=== PATIENT | female | born 1950 | race Caucasian/White ===

== ENCOUNTER 2020-07-08 22:45 | Emergency (ER) | payer MEDICARE, BC ==
[~2020-07-08] VITALS: Ht 160 cm; Wt 59.0 kg
[2020-07-08 23:13] LABS: HEMOGLOBIN 14.2 g/dl (12.0-16.0); MEAN PLATELET VOLUME 8.7 FL (7.4-10.4); WHITE BLOOD COUNT 7.8 X10'3 (4.5-11.0)
[2020-07-08 23:15] LABS: BASOPHILS % (AUTO) 0.6 % (0-1); EOSINOPHILS # (AUTO) 0.2 X10'3 (0-0.9); EOSINOPHILS % (AUTO) 2.9 % (0-6); LYMPHOCYTES # (AUTO) 2.6 X10'3 (1.1-4.8); LYMPHOCYTES % (AUTO) 32.7 % (21-51); MEAN CORPUSCULAR HEMOGLOBIN 34.1 PG (27.0-31.0); MEAN CORPUSCULAR HGB CONC 33.9 g/dL (33.0-36.5); MEAN CORPUSCULAR VOLUME 100.6 FL (78-98); MONOCYTES # (AUTO) 0.7 X10'3 (0-0.9); MONOCYTES % (AUTO) 9.6 % (2-12); NEUTROPHILS # (AUTO) 4.2 X10'3 (1.8-7.7); NEUTROPHILS % (AUTO) 54.2 % (42-75); PLATELET COUNT 185 X10'3 (140-440); RED BLOOD COUNT 4.17 X10'6 (4.20-5.60); RED CELL DISTRIBUTION WIDTH 12.4 % (11.5-14.5)
--- NOTE | 2020-07-08 23:20 | NUR ---
pt to ct with tech via wheel chair
[2020-07-08 23:25] LABS: ALANINE AMINOTRANSFERASE 29 U/L (12-78); ALBUMIN 3.7 G/DL (3.4-5.0); ALBUMIN/GLOBULIN RATIO 1.1 (1.1-1.5); ALKALINE PHOSPHATASE 98 IU/L (46-116); ANION GAP 4 (8-16); ASPARTATE AMINO TRANSFERASE 20 U/L (10-37); BILIRUBIN,TOTAL 0.5 MG/DL (0.1-1.0); BLOOD UREA NITROGEN 12 MG/DL (7-18); CHLORIDE 106 MMOL/L (99-107); CREATININE 0.86 MG/DL (0.40-0.90); GLUCOSE 106 MG/DL (70-104); LIPASE 67 U/L (73-393); POTASSIUM 3.6 MMOL/L (3.5-5.1); SODIUM 138 MMOL/L (135-145); TOTAL CARBON DIOXIDE 28.3 MMOL/L (24-32); TOTAL PROTEIN 7.1 G/DL (6.4-8.2); eGFR 65 ML/MIN
[2020-07-08 23:26] LABS: CLARITY,URINE CLEAR (Clear); COLOR,URINE YELLOW (Yellow); GLUCOSE, URINE NEGATIVE (Neg); KETONES,URINE NEGATIVE (Neg); LEUKOCYTE ESTERASE ,URINE SMALL (Neg); NITRITES, URINE NEGATIVE (Neg); OCCULT BLOOD,URINE TRACE-INTACT (Neg); PH,URINE 7.5 (4.8-8.0); PROTEIN,URINE NEGATIVE (Neg)
--- NOTE | 2020-07-08 23:30 | NUR ---
pt back from ct
[2020-07-08 23:35] LABS: BACTERIA,URINE NONE SEEN /HPF (Neg); RBC,URINE 0-2 /HPF (0-2); SQUAMOUS EPITHELIAL CELL,UR FEW /LPF (FEW); UA COLLECTION TYPE CLN CATCH MIDSTREAM; WBC,URINE 0-4 /HPF (0-4)
[2020-07-09] MEDS ORDERED: sucralfate 1gm/10ml UD suspension PO SCH (00:10)
[2020-07-09] MEDS ORDERED: famotidine/PF 10 mg/ml inj IV ONE (00:10)
[2020-07-09] MEDS ORDERED: pantoprazole 40 MG vial IV ONE (00:10)
[2020-07-09] MEDS ORDERED: LIDOcaine Viscous 15ml cup MM PRN (00:10)
[2020-07-09] MEDS ORDERED: mag hydrox/Alum hydrox/simeth 30ml oral suspension PO ONE (00:10)
[2020-07-09 00:39] VITALS: BP 190/83
== END 2020-07-09 00:35 | disposition home or self-care (01) ==
LOC: ER 22:46
DX: R10.13 Epigastric pain (principal); Z98.51 Tubal ligation status; Z98.61 Coronary angioplasty status; Z98.890 Other specified postprocedural states
CPT/HCPCS: 74176; 80053; 81001; 83605; 83690; 84484; 85025; 87088; 93005; 99285

== ENCOUNTER 2020-11-23 19:28 | Inpatient (IN) | payer MEDICARE, BC ==
[~2020-11-23] VITALS: Ht 160 cm; Wt 85.0 kg
--- NOTE | 2020-11-23 19:35 | NUR ---
GASTRIC BYPASS 15 YEARS AGO
--- NOTE | 2020-11-23 19:36 | NUR ---
DRY HEAVES X 3 DAYS DRAMTIC HEADS=ACHE X 3 DAYS
[2020-11-23] MEDS ORDERED: normal saline 1000ML IV soln IV ONE (19:45)
[2020-11-23 20:01] LABS: BASOPHILS % (AUTO) 0.1 % (0-1); EOSINOPHILS # (AUTO) 0.4 X10'3 (0-0.9); EOSINOPHILS % (AUTO) 1.9 % (0-6); HEMATOCRIT 33.9 % (35.0-45.0); HEMOGLOBIN 11.3 g/dl (12.0-16.0); LYMPHOCYTES # (AUTO) 0.2 X10'3 (1.1-4.8); MEAN CORPUSCULAR HGB CONC 33.2 g/dL (33.0-36.5); MEAN CORPUSCULAR VOLUME 99.4 FL (78-98); MEAN PLATELET VOLUME 8.5 FL (7.4-10.4); MONOCYTES # (AUTO) 0.3 X10'3 (0-0.9); MONOCYTES % (AUTO) 1.5 % (2-12); NEUTROPHILS # (AUTO) 19.6 X10'3 (1.8-7.7); NEUTROPHILS % (AUTO) 95.5 % (42-75); PLATELET COUNT 205 X10'3 (140-440); RED BLOOD COUNT 3.41 X10'6 (4.20-5.60); WHITE BLOOD COUNT 20.5 X10'3 (4.5-11.0)
[2020-11-23 20:13] LABS: ALANINE AMINOTRANSFERASE 39 U/L (12-78); ALBUMIN 1.6 G/DL (3.4-5.0); ALBUMIN/GLOBULIN RATIO 0.4 (1.1-1.5); ALKALINE PHOSPHATASE 302 IU/L (46-116); ANION GAP 15 (8-16); ASPARTATE AMINO TRANSFERASE 118 U/L (10-37); BILIRUBIN,TOTAL 1.1 MG/DL (0.1-1.0); BLOOD UREA NITROGEN 42 MG/DL (7-18); BUN/CREATININE RATIO 12.1 (6.6-38.0); CALCIUM 7.7 MG/DL (8.5-10.1); CHLORIDE 106 MMOL/L (99-107); CREATININE 3.46 MG/DL (0.40-0.90); GLUCOSE 70 MG/DL (70-104); LIPASE < 50 U/L (73-393); MAGNESIUM 1.7 MG/DL (1.5-2.4); SODIUM 140 MMOL/L (135-145); TOTAL CARBON DIOXIDE 19.3 MMOL/L (24-32); TOTAL PROTEIN 5.2 G/DL (6.4-8.2); eGFR 13 ML/MIN
[2020-11-23] MEDS ORDERED: dextrose 50%-water 50ml dispensing syringe IV ONE (20:15)
[2020-11-23 20:16] LABS: POTASSIUM 2.5 MMOL/L (3.5-5.1)
[2020-11-23] MEDS ORDERED: NORepinephrine inj. 32 MG in normal saline 250ml IV soln 218 ML IV SCH (20:20)
[2020-11-23] MEDS ORDERED: LIDOcaine 2% 10ml TOPICAL JELLY (Urojet) TP ONE ×2 (20:20→22:35)
[2020-11-23] MEDS ORDERED: piperacillin/tazo 3.375gm/50ml 50 ML IV ONE (20:55)
[2020-11-23] MEDS: NORepinephrine 8mg/ 250ml NS 250 ML IV SCH (21:00)
[2020-11-23] MEDS: potassium Cl 10 mEq/100mL bag IV SCH ×2 (21:20→22:17)
[2020-11-23 22:06] LABS: OCCULT BLOOD STOOL NEGATIVE (Neg)
[2020-11-23 22:16] LABS: ANISOCYTOSIS 1+; PLATELET ESTIMATE NORMAL; TOTAL CELLS COUNTED 100
[2020-11-23] MEDS ORDERED: fentaNYL/PF 50MCG/1 ML 2ML syringe IV ONE (22:30)
[2020-11-23] MEDS ORDERED: ondansetron/PF 4mg/2ml inj IV ONE (22:30)
[2020-11-23] MEDS ORDERED: acetaminophen 325mg tablet PO PRN ×2 (22:35)
[2020-11-23] MEDS ORDERED: ondansetron/PF 4mg/2ml inj IV PRN (22:35)
[2020-11-23] MEDS ORDERED: magnesium hydroxide 30ml (MOM) UD suspension PO PRN (22:35)
[2020-11-23] MEDS ORDERED: potassium Cl 20 mEq SR tablet PO PRN ×2 (22:35)
[2020-11-23] MEDS ORDERED: normal saline 1000ml 1,000 ML IV SCH (22:35)
--- NOTE | 2020-11-23 23:12 | NUR ---
tele indirect sales representative paged
--- NOTE | 2020-11-23 23:13 | NUR ---
tele monitor Dr Moyer unable to get into room he states he just an account today and does not know how to use this system
--- NOTE | 2020-11-23 23:18 | NUR ---
dr russell would like a surgical consult, requested we move patient to icu now to use the zoom system [place] [address] [place] and needs consult services available.
[2020-11-24] VITALS (22 sets, daily range): BP systolic 87–110; BP diastolic 36–85
--- NOTE | 2020-11-24 | NUR ---
Patient in room CICU 2011. I have received report from Yessica RN (ER) and had the opportunity to ask questions and assume patient care. Patient arrived by barbara with Nor Epi infusing to support BP. She is tachycardic (104) and doing well on room air. She is having generalized pain. Will continue to monitor.
[2020-11-24] MEDS: potassium Cl 40MEQ/250ML bag 270 ML IV PRN ×2 (00:46→03:07)
[2020-11-24 01:18] LABS: BASOPHILS % (AUTO) 0.1 % (0-1); EOSINOPHILS # (AUTO) 0.8 X10'3 (0-0.9); EOSINOPHILS % (AUTO) 3.1 % (0-6); HEMATOCRIT 36.7 % (35.0-45.0); LYMPHOCYTES # (AUTO) 0.1 X10'3 (1.1-4.8); LYMPHOCYTES % (AUTO) 0.4 % (21-51); MEAN CORPUSCULAR HEMOGLOBIN 32.6 PG (27.0-31.0); MEAN CORPUSCULAR HGB CONC 32.8 g/dL (33.0-36.5); MEAN CORPUSCULAR VOLUME 99.6 FL (78-98); MEAN PLATELET VOLUME 8.7 FL (7.4-10.4); MONOCYTES # (AUTO) 0.1 X10'3 (0-0.9); MONOCYTES % (AUTO) 0.6 % (2-12); NEUTROPHILS # (AUTO) 24.9 X10'3 (1.8-7.7); NEUTROPHILS % (AUTO) 95.8 % (42-75); PLATELET COUNT 221 X10'3 (140-440); RED BLOOD COUNT 3.68 X10'6 (4.20-5.60); RED CELL DISTRIBUTION WIDTH 13.2 % (11.5-14.5)
[2020-11-24] MEDS: NORepinephrine 8mg/ 250ml NS 250 ML IV SCH ×3 (01:40→08:10)
[2020-11-24 01:47] LABS: ALANINE AMINOTRANSFERASE 74 U/L (12-78); ALBUMIN 1.6 G/DL (3.4-5.0); ALBUMIN/GLOBULIN RATIO 0.4 (1.1-1.5); ALKALINE PHOSPHATASE 355 IU/L (46-116); ANION GAP 21 (8-16); ASPARTATE AMINO TRANSFERASE 251 U/L (10-37); BILIRUBIN,TOTAL 1.6 MG/DL (0.1-1.0); BLOOD UREA NITROGEN 39 MG/DL (7-18); BUN/CREATININE RATIO 11.7 (6.6-38.0); CALCIUM 7.1 MG/DL (8.5-10.1); CHLORIDE 108 MMOL/L (99-107); CREATININE 3.33 MG/DL (0.40-0.90); GLUCOSE 80 MG/DL (70-104); SODIUM 142 MMOL/L (135-145); TOTAL PROTEIN 5.3 G/DL (6.4-8.2); eGFR 14 ML/MIN
[2020-11-24 01:50] LABS: POTASSIUM 2.6 MMOL/L (3.5-5.1)
[2020-11-24 01:51] LABS: TOTAL CARBON DIOXIDE 13.4 MMOL/L (24-32)
[2020-11-24] MEDS: morphine 2 MG/ML inj. syringe IV PRN ×3 (02:58→12:36)
[2020-11-24 03:19] LABS: TOTAL CELLS COUNTED 100
[2020-11-24 03:20] LABS: ANISOCYTOSIS 1+; PLATELET ESTIMATE NORMAL; TOXIC GRANULATION 1+
[2020-11-24] MEDS ORDERED: magnesium 2GM in 50ml NS 50 ML IV ONE (04:05)
[2020-11-24] MEDS ORDERED: sodium bicarbonate (8.4%) 1 mEq/ml syringe IV ONE (04:05)
[2020-11-24] MEDS ORDERED: sodium bicarbonate (8.4%) inj. 150 MEQ in dextrose 5%-water 1,000 ML IV SCH (04:05)
[2020-11-24] MEDS ORDERED: vancomycin/NS 1 GM ADD-VANTAGE 250 ML IV ONE (04:10)
[2020-11-24 04:32] LABS: ABG BASE EXCESS -10.2 mmol/L (-2.0-2.0); ABG HCO3 12.8 mmol/L (22.0-26.0); ABG OXYGEN SATURATION 94.8 % (94-97); ABG PCO2 (T) 21.3 mmHg (32.0-45.0); ABG PO2 (T) 70.4 mmHg (75.0-100.0); ALLEN'S TEST POSITIVE; FCOHb 0.5 % (0.0-3.9); FMetHb 0.1 % (0.0-1.5); FO2Hb 94.2 % (94-97); PATIENT TEMPERATURE 36.1; TOTAL HEMOGLOBIN 13.1 G/dl (12.0-16.0)
[2020-11-24] MEDS: vasopressin inj. 40 UNIT in normal saline 50ml IV soln 38 ML IV SCH ×2 (04:42→16:05)
--- NOTE | 2020-11-24 04:58 | NUR ---
Patient is hallucinating a bit. She thinks the TV is on but it is off. She is also seeing a baby tiger in the vent. She realizes it isn't real. She's also in a lot of pain, mostly in her knees. 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
[2020-11-24 05:03] LABS: ALBUMIN 1.5 G/DL (3.4-5.0); ANION GAP 16 (8-16); BLOOD UREA NITROGEN 41 MG/DL (7-18); CALCIUM 6.9 MG/DL (8.5-10.1); CHLORIDE 112 MMOL/L (99-107); CREATININE 3.42 MG/DL (0.40-0.90); GLUCOSE 52 MG/DL (70-104); POTASSIUM 4.2 MMOL/L (3.5-5.1); SODIUM 144 MMOL/L (135-145); TOTAL CARBON DIOXIDE 15.8 MMOL/L (24-32); eGFR 13 ML/MIN
--- NOTE | 2020-11-24 06:15 | NUR ---
Patient is diaphoretic and confused, BS 50, 1 amp of 50% dextrose given. Called Dr Lomeli, verbal orders to put in hypoglycemic protocol.
--- NOTE | 2020-11-24 06:20 | NUR ---
Problems reprioritized. Patient report given, questions answered & plan of care reviewed with Carmine NORRIS.
--- NOTE | 2020-11-24 06:21 | NUR ---
Problems reprioritized. Patient report given, questions answered & plan of care reviewed with Carmine NORRIS.
[2020-11-24] MEDS ORDERED: dextrose 50%-water 50ml dispensing syringe IV ONE (06:26)
[2020-11-24] MEDS: dextrose 50%-water 50ml dispensing syringe IV PRN ×4 (06:35→19:35)
[2020-11-24] MEDS ORDERED: dextrose ORAL solution 15 GM/59 ML bottle PO PRN ×2 (06:40)
[2020-11-24] MEDS ORDERED: MESSAGE TO PHARMACY PO ONE (06:40)
[2020-11-24] MEDS ORDERED: glucagon, human recombinant 1mg kit SUBCUT PRN (06:40)
[2020-11-24] MEDS ORDERED: vancomycin/NS 1 GM ADD-VANTAGE 250 ML IV PRN (07:00)
--- NOTE | 2020-11-24 07:05 | NUR ---
Positive blood cultures: Gram + Cocci in pairs and short chains from CVL. aware. Continue current Abx regimen.
[2020-11-24] MEDS: piperacillin/tazo 3.375gm/50ml 50 ML IV SCH ×2 (07:26→19:35)
[2020-11-24] MEDS: heparin, porcine 5000 units/ml vial SQ SCH ×2 (07:27→19:16)
[2020-11-24] MEDS: K, MAG and/or Phos replacement - Verify level? MC SCH (09:00)
[2020-11-24] MEDS ORDERED: NORepinephrine 32 MG in Normal Saline 250ml IV soln IV SCH (09:30)
[2020-11-24 09:53] LABS: CLARITY,URINE CLEAR (Clear); COLOR,URINE YELLOW (Yellow); GLUCOSE, URINE 100 mg/dl (Neg); KETONES,URINE NEGATIVE (Neg); LEUKOCYTE ESTERASE ,URINE SMALL (Neg); NITRITES, URINE NEGATIVE (Neg); OCCULT BLOOD,URINE MODERATE (Neg); PH,URINE 7.5 (4.8-8.0); PROTEIN,URINE >=300 mg/dl (Neg); UROBILINOGEN,URINE 0.2 E.U/dL (0.2-1.0)
[2020-11-24 10:07] LABS: UA COLLECTION TYPE FOLEY CATH
[2020-11-24 10:08] LABS: BACTERIA,URINE FEW /HPF (Neg); MUCUS STRANDS FEW /LPF (Neg); SQUAMOUS EPITHELIAL CELL,UR FEW /LPF (FEW); TRANSITIONAL EPI CELLS,URINE FEW /HPF; WBC,URINE 20-30 /HPF (0-4)
[2020-11-24] MEDS ORDERED: normal saline 500ml IV soln 500 ML IV ONE ×2 (10:10→12:15)
--- NOTE | 2020-11-24 10:30 | NUR ---
Hold mixed venous lab draw at this time per Dr. Goins and focus on ABG at this time.
[2020-11-24 10:45] LABS: MEAN CORPUSCULAR HEMOGLOBIN 32.7 PG (27.0-31.0); MEAN CORPUSCULAR HGB CONC 32.7 g/dL (33.0-36.5)
[2020-11-24 10:46] LABS: HEMATOCRIT 36.8 % (35.0-45.0); MEAN CORPUSCULAR VOLUME 100.2 FL (78-98); MEAN PLATELET VOLUME 8.2 FL (7.4-10.4); PLATELET COUNT 182 X10'3 (140-440); RED BLOOD COUNT 3.68 X10'6 (4.20-5.60); RED CELL DISTRIBUTION WIDTH 13.5 % (11.5-14.5)
[2020-11-24 10:49] LABS: WHITE BLOOD COUNT 28.4 X10'3 (4.5-11.0)
[2020-11-24 11:01] LABS: ALANINE AMINOTRANSFERASE 81 U/L (12-78); ALBUMIN 1.3 G/DL (3.4-5.0); ALBUMIN/GLOBULIN RATIO 0.4 (1.1-1.5); ALKALINE PHOSPHATASE 378 IU/L (46-116); ANION GAP 16 (8-16); ASPARTATE AMINO TRANSFERASE 196 U/L (10-37); BILIRUBIN,TOTAL 2.2 MG/DL (0.1-1.0); BLOOD UREA NITROGEN 42 MG/DL (7-18); BUN/CREATININE RATIO 11.6 (6.6-38.0); CALCIUM 6.4 MG/DL (8.5-10.1); CHLORIDE 111 MMOL/L (99-107); CREATININE 3.61 MG/DL (0.40-0.90); GLUCOSE 96 MG/DL (70-104); MAGNESIUM 1.4 MG/DL (1.5-2.4); PHOSPHORUS 2.4 MG/DL (2.3-4.5); POTASSIUM 3.5 MMOL/L (3.5-5.1); SODIUM 142 MMOL/L (135-145); TOTAL CARBON DIOXIDE 15.3 MMOL/L (24-32); TOTAL PROTEIN 4.7 G/DL (6.4-8.2); eGFR 12 ML/MIN
[2020-11-24 11:03] LABS: ABG HCO3 11.9 mmol/L (22.0-26.0); ABG OXYGEN SATURATION 86.2 % (94-97); ABG PCO2 (T) 25.5 mmHg (32.0-45.0); ABG PO2 (T) 54.5 mmHg (75.0-100.0); FCOHb 0.5 % (0.0-3.9); FMetHb 0.2 % (0.0-1.5); FO2Hb 85.6 % (94-97)
[2020-11-24 11:08] LABS: TOTAL CELLS COUNTED 100
[2020-11-24 11:09] LABS: PLATELET ESTIMATE NORMAL; TOXIC GRANULATION 2+
[2020-11-24 11:36] LABS: TROPONIN I 0.33 NG/ML (0.0-0.05)
[2020-11-24] MEDS ORDERED: magnesium 4gm in 100ml NS 100 ML IV PRN (11:50)
[2020-11-24] MEDS ORDERED: magnesium 2GM in 50ml NS 50 ML IV PRN (11:50)
[2020-11-24 12:24] LABS: C DIFF ANTIGEN NEGATIVE (NEGATIVE); C DIFF SPECIMEN=DIARRHEA? ACCEPTABLE; C DIFFICILE TOXINS A&B NEGATIVE (Neg)
[2020-11-24] MEDS: famotidine/PF 10 mg/ml inj IV SCH (12:25)
[2020-11-24] MEDS: NORepinephrine inj. 32 MG in normal saline 250ml IV soln 218 ML IV SCH (12:47)
[2020-11-24] MEDS ORDERED: HYDROmorphone/PF 0.2 MG/ML SYRINGE IM STA (12:51)
[2020-11-24] MEDS ORDERED: HYDROmorphone/PF 0.2 MG/ML SYRINGE IV PRN (12:55)
[2020-11-24] MEDS ORDERED: sodium bicarbonate (8.4%) 1 mEq/ml syringe IV STA (12:58)
[2020-11-24] MEDS: CLINDAMYCIN/D5W 900mg/50ml 50 ML IV SCH (14:57)
[2020-11-24 15:25] LABS: ABG BASE EXCESS -12.1 mmol/L (-2.0-2.0); ABG HCO3 12.6 mmol/L (22.0-26.0); ABG OXYGEN SATURATION 98.2 % (94-97); ABG PO2 (T) 143.7 mmHg (75.0-100.0); FCOHb 0.1 % (0.0-3.9); FLOW 15 L/min; FMetHb 0.2 % (0.0-1.5); FO2Hb 97.9 % (94-97); PATIENT TEMPERATURE 38.5; TOTAL HEMOGLOBIN 12.6 G/dl (12.0-16.0)
[2020-11-24 16:06] LABS: HEMOGLOBIN 11.4 g/dl (12.0-16.0)
[2020-11-24 16:07] LABS: CLARITY,URINE CLOUDY (Clear); COLOR,URINE YELLOW (Yellow); GLUCOSE, URINE NEGATIVE (Neg); KETONES,URINE NEGATIVE (Neg); LEUKOCYTE ESTERASE ,URINE SMALL (Neg); NITRITES, URINE NEGATIVE (Neg); OCCULT BLOOD,URINE LARGE (Neg); PH,URINE 7.5 (4.8-8.0); PROTEIN,URINE >=300 mg/dl (Neg); UROBILINOGEN,URINE 0.2 E.U/dL (0.2-1.0)
[2020-11-24 16:08] LABS: HEMATOCRIT 34.5 % (35.0-45.0); MEAN CORPUSCULAR HEMOGLOBIN 32.8 PG (27.0-31.0); MEAN CORPUSCULAR HGB CONC 32.9 g/dL (33.0-36.5); MEAN CORPUSCULAR VOLUME 99.6 FL (78-98); MEAN PLATELET VOLUME 8.7 FL (7.4-10.4); PLATELET COUNT 153 X10'3 (140-440); RED BLOOD COUNT 3.46 X10'6 (4.20-5.60); RED CELL DISTRIBUTION WIDTH 13.6 % (11.5-14.5)
[2020-11-24 16:12] LABS: WHITE BLOOD COUNT 30.8 X10'3 (4.5-11.0)
[2020-11-24 16:18] LABS: PARTIAL THROMBOPLASTIN TIME 51 SECONDS (22-32)
[2020-11-24 16:18] LABS: UA COLLECTION TYPE FOLEY CATH
[2020-11-24 16:19] LABS: ALANINE AMINOTRANSFERASE 76 U/L (12-78); ALBUMIN 1.1 G/DL (3.4-5.0); ALBUMIN/GLOBULIN RATIO 0.3 (1.1-1.5); ALKALINE PHOSPHATASE 347 IU/L (46-116); ANION GAP 18 (8-16); ASPARTATE AMINO TRANSFERASE 172 U/L (10-37); BILIRUBIN,TOTAL 2.3 MG/DL (0.1-1.0); BLOOD UREA NITROGEN 43 MG/DL (7-18); BUN/CREATININE RATIO 11.9 (6.6-38.0); CHLORIDE 114 MMOL/L (99-107); CREATININE 3.62 MG/DL (0.40-0.90); GLUCOSE 138 MG/DL (70-104); SODIUM 145 MMOL/L (135-145); TOTAL PROTEIN 4.3 G/DL (6.4-8.2); eGFR 12 ML/MIN
[2020-11-24 16:20] LABS: POTASSIUM 3.9 MMOL/L (3.5-5.1)
[2020-11-24 16:20] LABS: RBC,URINE 20-50 /HPF (0-2); WBC,URINE 50-100 /HPF (0-4)
[2020-11-24] MEDS: epiNEPHrine 5 MG in NS 250ml IV.SOLN IV SCH (16:20)
[2020-11-24 16:21] LABS: BACTERIA,URINE FEW /HPF (Neg); MUCUS STRANDS FEW /LPF (Neg); RENAL CELLS, URINE FEW /HPF; SQUAMOUS EPITHELIAL CELL,UR FEW /LPF (FEW); TRANSITIONAL EPI CELLS,URINE FEW /HPF
[2020-11-24 16:22] LABS: TOTAL CARBON DIOXIDE 13.5 MMOL/L (24-32)
--- NOTE | 2020-11-24 16:25 | NUR ---
Critical Ca 6.0, LA 5.4, CO2 13.5, WBC 30.2, Blood sugar 37. Dr. Goins at bedside and aware of critical values. Calcium Gluconate ordered. Also, q3h blood sugar accuchecks and treat as needed with D50%. Ultrasound at bedside to monitor right groin. MD aware of temp of 38.6. Tylenol provided. working with Surgical vs IR consult.
[2020-11-24 16:30] LABS: TOTAL PROTEIN,URINE RANDOM 1467.6 MG/DL
[2020-11-24] MEDS ORDERED: CALCIUM GLUC 1gm/50ml NACL,iso 50 ML IV STA (16:30)
[2020-11-24 16:38] LABS: PLATELET ESTIMATE NORMAL; TOTAL CELLS COUNTED 100; TOXIC GRANULATION 2+
[2020-11-24] MEDS ORDERED: IOHEXOL 12MG/ML oral solution 500 ML BOTTLE PO STA (17:08)
[2020-11-24 17:30] LABS: UA EOSINOPHILS NO EOS /HPF
[2020-11-24] MEDS ORDERED: albumin (Human) 5% 250ml 250 ML IV ONE ×2 (17:40)
--- NOTE | 2020-11-24 18:32 | NUR ---
Patient in room CICU 2011. I have received report from JR Lou and had the opportunity to ask questions and assume patient care.
[2020-11-24] MEDS ORDERED: HYDROmorphone inj. 0.5 MG/0.5 ML DISP.SYRIN IV PRN (18:45)
--- NOTE | 2020-11-24 18:54 | NUR ---
Shift summary: Patient becoming more tachypneic and o2 requirements increasing to 6L nasal cannula this AM. Also, patient requiring more pressor support. Per Dr. Goins, increase Vasopressin to max dose and titrate levophed down. Hold Epinephrine drip as per MD as HR elevated at this time. During physical exam with Dr. Goins, small perineum wound/abrasion noted; thus, with increased abd/leg pain, MRI ordered to rule out possible source of infection. Patient tolerated transfer to MRI; however, upon return, patient requiring more o2 and pressor support. ART line placed by Dr. Goins and surgical vs IR consult initiated. Dr. Alfaro at bedside to consult patient and requesting repeat CT scan with oral contrast. Report given to Angelica NORRIS with all questions answered.
[2020-11-24 19:40] LABS: ABG BASE EXCESS -14.5 mmol/L (-2.0-2.0); ABG HCO3 11.5 mmol/L (22.0-26.0); ABG OXYGEN SATURATION 93.9 % (94-97); ABG PO2 (T) 79.3 mmHg (75.0-100.0); ALLEN'S TEST POSITIVE; FCOHb 0.3 % (0.0-3.9); FLOW 5 L/min; FMetHb 0.2 % (0.0-1.5); FO2Hb 93.4 % (94-97); PATIENT TEMPERATURE 38.6; TOTAL HEMOGLOBIN 11.6 G/dl (12.0-16.0)
[2020-11-24 19:50] LABS: HEMATOCRIT 34.2 % (35.0-45.0); HEMOGLOBIN 11.1 g/dl (12.0-16.0); MEAN CORPUSCULAR HEMOGLOBIN 32.3 PG (27.0-31.0); MEAN CORPUSCULAR HGB CONC 32.5 g/dL (33.0-36.5); MEAN CORPUSCULAR VOLUME 99.5 FL (78-98); MEAN PLATELET VOLUME 8.4 FL (7.4-10.4); PLATELET COUNT 129 X10'3 (140-440); RED BLOOD COUNT 3.44 X10'6 (4.20-5.60); RED CELL DISTRIBUTION WIDTH 13.5 % (11.5-14.5)
[2020-11-24 19:57] LABS: WHITE BLOOD COUNT 34.8 X10'3 (4.5-11.0)
--- NOTE | 2020-11-24 20:00 | NUR ---
Dr. Louis updated on patient condition. Patient unstable to go to CT at the moment, thus, tele med MD called. orders for bp received as patient's BP on low side and levo and vaso maxed per MD Goins orders. MD notified of patient current ABG, avoiding intubation at this time, starting a bicarb drip. WBC is 34.8, she was notified of this. pt BG has been hypoglycemic receiving multiple pushes of d50. MD ordered bicarb drip to be in d5w to combat the hypoglycemia. Will be taking patient to CT, with another DRILLER'S OFFSIDER, RT and tech. Possible surgery by MD Alfaro after CT
[2020-11-24 20:03] LABS: ALANINE AMINOTRANSFERASE 73 U/L (12-78); ALBUMIN 1.8 G/DL (3.4-5.0); ALBUMIN/GLOBULIN RATIO 0.6 (1.1-1.5); ALKALINE PHOSPHATASE 348 IU/L (46-116); ANION GAP 17 (8-16); ASPARTATE AMINO TRANSFERASE 150 U/L (10-37); BILIRUBIN,TOTAL 2.8 MG/DL (0.1-1.0); BLOOD UREA NITROGEN 45 MG/DL (7-18); CALCIUM 6.5 MG/DL (8.5-10.1); CHLORIDE 112 MMOL/L (99-107); CREATININE 3.75 MG/DL (0.40-0.90); GLUCOSE 76 MG/DL (70-104); SODIUM 144 MMOL/L (135-145); TOTAL CARBON DIOXIDE 15.2 MMOL/L (24-32); TOTAL PROTEIN 4.8 G/DL (6.4-8.2); eGFR 12 ML/MIN
[2020-11-24] MEDS ORDERED: phenylephrine inj 50 MG in normal saline 250ml IV soln 245 ML IV PRN (20:05)
--- NOTE | 2020-11-24 20:20 | NUR ---
spoke to Dr. Sotelo Anesthesiologist regarding unable to give pt the remainder of the oral contrast for her CT scan due to pts overall decline in condition. Unable to place OG tube due to pt having gastric bypass. No new orders at this time
[2020-11-24] MEDS: sodium bicarbonate (8.4%) inj. 150 MEQ in dextrose 5%-water 1,000 ML IV SCH (20:32)
[2020-11-24 20:39] LABS: ANISOCYTOSIS 1+; PLATELET ESTIMATE NORMAL; TOTAL CELLS COUNTED 100; TOXIC GRANULATION 2+
--- NOTE | 2020-11-24 21:00 | NUR ---
MD Alfaro and MD Mack at bedside, will be taking patient to OR.
[2020-11-24] MEDS ORDERED: gentamicin in saline, iso-osm 80 MG/50 ML premix IV ONE (21:05)
[2020-11-24] MEDS ORDERED: vasoPRESSIN 20 units/ml inj. ONE (21:06)
[2020-11-24] MEDS ORDERED: sevoflurane 250ml liquid IH ONE (21:06)
[2020-11-24] MEDS ORDERED: NORepinephrine 8 MG in NS 250 ML BAG (32 mcg/ml) IV ONE (21:06)
[2020-11-24] MEDS ORDERED: sodium bicarbonate (8.4%) inj. 1 MEQ/ML ML ONE (21:06)
[2020-11-24] MEDS ORDERED: albumin (Human) 5% 250ml 500 ML IV ONE (21:08)
[2020-11-24] MEDS ORDERED: GENTAMICIN IV ONE (22:00)
[2020-11-24] MEDS ORDERED: NORMAL SALINE IV ONE (22:00)
[2020-11-24] MEDS ORDERED: midazolam 2 mg/2 ml injection ONE (22:03)
[2020-11-24] MEDS ORDERED: fentaNYL/PF 50MCG/1 ML 2ML syringe ONE (22:04)
[2020-11-24 22:23] LABS: ABG BASE EXCESS -14.1 mmol/L (-2.0-2.0); ABG HCO3 14.5 mmol/L (22.0-26.0); ABG OXYGEN SATURATION 97.3 % (94-97); ABG PCO2 (T) 46.1 mmHg (32.0-45.0); ABG PO2 (T) 126.7 mmHg (75.0-100.0); FCOHb 0.3 % (0.0-3.9); FMetHb 0.4 % (0.0-1.5); FO2Hb 96.6 % (94-97); PATIENT TEMPERATURE 37.9; TOTAL HEMOGLOBIN 11.6 G/dl (12.0-16.0)
[2020-11-24] MEDS ORDERED: LIDOcaine 1%/PF 5ML 10 MG/ML VIAL ONE (22:45)
[2020-11-24] MEDS ORDERED: rocuronium 10mg/ml inj IV ONE ×2 (22:45)
[2020-11-24] MEDS ORDERED: LIDOcaine 2% (20mg/ml) 5ml vial ONE (22:46)
[2020-11-24] MEDS ORDERED: propofol inj 20 ML IV ONE (22:46)
[2020-11-24 23:18] LABS: ABG BASE EXCESS -8.7 mmol/L (-2.0-2.0); ABG HCO3 15.6 mmol/L (22.0-26.0); ABG OXYGEN SATURATION 97.1 % (94-97); ABG PCO2 (T) 29.9 mmHg (32.0-45.0); ABG PO2 (T) 97.5 mmHg (75.0-100.0); FCOHb 0.2 % (0.0-3.9); FMetHb 0.2 % (0.0-1.5); FO2Hb 96.7 % (94-97); PATIENT TEMPERATURE 37.9; TOTAL HEMOGLOBIN 11.4 G/dl (12.0-16.0)
[2020-11-24] MEDS ORDERED: midazolam 2 mg/2 ml injection IV ONE (23:20)
[2020-11-24] MEDS ORDERED: fentaNYL/PF 50MCG/1 ML 2ML syringe IV PRN (23:20)
[2020-11-25] VITALS (28 sets, daily range): BP systolic 80–139; BP diastolic 33–54
[2020-11-25] MEDS: CLINDAMYCIN/D5W 900mg/50ml 50 ML IV SCH ×3 (00:32→16:00)
[2020-11-25 00:39] LABS: ABG BASE EXCESS -10.7 mmol/L (-2.0-2.0); ABG HCO3 14.2 mmol/L (22.0-26.0); ABG OXYGEN SATURATION 98.8 % (94-97); ABG PCO2 (T) 30.3 mmHg (32.0-45.0); ABG PO2 (T) 240.6 mmHg (75.0-100.0); FCOHb 0.3 % (0.0-3.9); FMetHb 0.3 % (0.0-1.5); FO2Hb 98.2 % (94-97); PATIENT TEMPERATURE 38.4; PEEP 5 cm H2O; RESPIRATORY RATE 16 b/min; TIDAL VOLUME 600 mL; TOTAL HEMOGLOBIN 11.4 G/dl (12.0-16.0)
[2020-11-25] MEDS: midazolam 100mg in NS 100ml 100 ML IV PRN ×2 (01:03→19:07)
[2020-11-25] MEDS: FENTANYL-0.9 % NACL/PF 100 ML IV PRN ×3 (01:04→19:06)
[2020-11-25 01:12] LABS: HEMOGLOBIN 10.4 g/dl (12.0-16.0); MEAN PLATELET VOLUME 8.5 FL (7.4-10.4)
[2020-11-25 01:14] LABS: HEMATOCRIT 31.6 % (35.0-45.0); MEAN CORPUSCULAR HEMOGLOBIN 32.7 PG (27.0-31.0); PLATELET COUNT 88 X10'3 (140-440); RED BLOOD COUNT 3.19 X10'6 (4.20-5.60); RED CELL DISTRIBUTION WIDTH 13.5 % (11.5-14.5)
[2020-11-25 01:23] LABS: WHITE BLOOD COUNT 35.8 X10'3 (4.5-11.0)
[2020-11-25 01:29] LABS: PARTIAL THROMBOPLASTIN TIME 66 SECONDS (22-32)
[2020-11-25 01:31] LABS: ALANINE AMINOTRANSFERASE 63 U/L (12-78); ALBUMIN 1.8 G/DL (3.4-5.0); ALBUMIN/GLOBULIN RATIO 0.7 (1.1-1.5); ALKALINE PHOSPHATASE 292 IU/L (46-116); ANION GAP 16 (8-16); ASPARTATE AMINO TRANSFERASE 108 U/L (10-37); BILIRUBIN,TOTAL 3.1 MG/DL (0.1-1.0); BLOOD UREA NITROGEN 48 MG/DL (7-18); BUN/CREATININE RATIO 12.6 (6.6-38.0); CALCIUM 6.5 MG/DL (8.5-10.1); CHLORIDE 110 MMOL/L (99-107); CREATININE 3.82 MG/DL (0.40-0.90); GLUCOSE 84 MG/DL (70-104); MAGNESIUM 1.4 MG/DL (1.5-2.4); PHOSPHORUS 4.4 MG/DL (2.3-4.5); POTASSIUM 3.9 MMOL/L (3.5-5.1); SODIUM 144 MMOL/L (135-145); TOTAL CARBON DIOXIDE 18.2 MMOL/L (24-32); TOTAL PROTEIN 4.5 G/DL (6.4-8.2); eGFR 12 ML/MIN
[2020-11-25] MEDS ORDERED: acetaminophen 1,000mg/100ml IV 100 ML IV ONE (02:05)
[2020-11-25] MEDS: epiNEPHrine 5 MG in NS 250ml IV.SOLN IV SCH (02:09)
[2020-11-25 02:47] LABS: ANISOCYTOSIS 1+; PLATELET ESTIMATE NORMAL; TOTAL CELLS COUNTED 100; TOXIC GRANULATION 2+
[2020-11-25] MEDS ORDERED: VANCOMYCIN LEVEL IV SCH (03:00)
[2020-11-25 04:33] LABS: ABG BASE EXCESS -11.1 mmol/L (-2.0-2.0); ABG HCO3 12.6 mmol/L (22.0-26.0); ABG OXYGEN SATURATION 98.5 % (94-97); ABG PCO2 (T) 24.6 mmHg (32.0-45.0); ABG PO2 (T) 150.3 mmHg (75.0-100.0); FCOHb 0.1 % (0.0-3.9); FMetHb 0.3 % (0.0-1.5); FO2Hb 98.1 % (94-97); PATIENT TEMPERATURE 38.9; PEEP 5 cm H2O; RESPIRATORY RATE 16 b/min; TIDAL VOLUME 600 mL
[2020-11-25] MEDS ORDERED: iohexol 350MG/ML 100ml bottle IV ONE (05:04)
--- NOTE | 2020-11-25 06:00 | NUR ---
At approximately 0430 Patient's hand to be severely dusky on the right side and slightly dusky on left. pulses checked, not palpable. attempted doppler and was unable to find the right radial pulse. unable to find right pedal and tibial via doppler but popliteal was found. left radial, pedal and tibial are found via doppler. patient also had a strange gaze and found that right pupil was slightly larger than the left. MD Alfaro and Tele med notified. CT of head was ordered as well as a CTA of aorta, MD aware of severely poor kidney function. patient was taken to CT and tolerated transport fairly well.
[2020-11-25] MEDS ORDERED: vancomycin/NS 1 GM ADD-VANTAGE 250 ML IV ONE (06:50)
--- NOTE | 2020-11-25 07:00 | NUR ---
Problems reprioritized. Patient report given, questions answered & plan of care reviewed with JR Steen.
[2020-11-25] MEDS: sodium bicarbonate (8.4%) inj. 150 MEQ in dextrose 5%-water 1,000 ML IV SCH ×2 (07:12→19:05)
[2020-11-25] MEDS: vasopressin inj. 40 UNIT in normal saline 50ml IV soln 38 ML IV SCH (07:45)
[2020-11-25] MEDS: famotidine/PF 10 mg/ml inj IV SCH (07:45)
[2020-11-25] MEDS: K, MAG and/or Phos replacement - Verify level? MC SCH (08:00)
[2020-11-25] MEDS: heparin, porcine 5000 units/ml vial SQ SCH (08:18)
[2020-11-25] MEDS ORDERED: PIGGYBACK IV ONE (08:30)
[2020-11-25] MEDS ORDERED: IMMUNE GLOBULIN IV ONE (08:30)
[2020-11-25] MEDS: hydrocortisone sod succ/PF 100mg/2ml inj. IV SCH ×2 (08:50→19:06)
[2020-11-25 08:51] LABS: HEMOGLOBIN 9.9 g/dl (12.0-16.0); LYMPHOCYTES # (AUTO) 0.5 X10'3 (1.1-4.8); LYMPHOCYTES % (AUTO) 1.4 % (21-51); MONOCYTES # (AUTO) 0.2 X10'3 (0-0.9); PLATELET COUNT 59 X10'3 (140-440)
[2020-11-25] MEDS: piperacillin/tazo 3.375gm/50ml 50 ML IV SCH (08:51)
[2020-11-25 08:53] LABS: BASOPHILS % (AUTO) 0.1 % (0-1); EOSINOPHILS # (AUTO) 0.7 X10'3 (0-0.9); EOSINOPHILS % (AUTO) 1.7 % (0-6); HEMATOCRIT 29.8 % (35.0-45.0); MEAN CORPUSCULAR HEMOGLOBIN 32.9 PG (27.0-31.0); MEAN CORPUSCULAR HGB CONC 33.3 g/dL (33.0-36.5); MEAN PLATELET VOLUME 8.7 FL (7.4-10.4); MONOCYTES % (AUTO) 0.6 % (2-12); NEUTROPHILS # (AUTO) 37.5 X10'3 (1.8-7.7); NEUTROPHILS % (AUTO) 96.2 % (42-75); RED BLOOD COUNT 3.01 X10'6 (4.20-5.60); RED CELL DISTRIBUTION WIDTH 13.6 % (11.5-14.5)
[2020-11-25 09:51] LABS: PLATELET ESTIMATE DECREASED; TOTAL CELLS COUNTED 100
[2020-11-25 09:52] LABS: TOXIC GRANULATION 2+; TOXIC VACUOLATION 3+
[2020-11-25 10:32] LABS: ALANINE AMINOTRANSFERASE 57 U/L (12-78); ALBUMIN 1.4 G/DL (3.4-5.0); ALBUMIN/GLOBULIN RATIO 0.5 (1.1-1.5); ALKALINE PHOSPHATASE 240 IU/L (46-116); ANION GAP 18 (8-16); ASPARTATE AMINO TRANSFERASE 96 U/L (10-37); BILIRUBIN,TOTAL 3.6 MG/DL (0.1-1.0); BLOOD UREA NITROGEN 54 MG/DL (7-18); BUN/CREATININE RATIO 13.1 (6.6-38.0); CHLORIDE 109 MMOL/L (99-107); CREATININE 4.12 MG/DL (0.40-0.90); GLUCOSE 97 MG/DL (70-104); POTASSIUM 4.3 MMOL/L (3.5-5.1); SODIUM 143 MMOL/L (135-145); TOTAL CARBON DIOXIDE 16.2 MMOL/L (24-32); eGFR 11 ML/MIN
[2020-11-25 10:37] LABS: CALCIUM 5.9 MG/DL (8.5-10.1)
--- NOTE | 2020-11-25 10:39 | NUR ---
Initial: Pt intubated admit DX septic shock, lactic acidosis, R thigh fasciitis s/p OR for lysis of extensive abdominal adhesions, exploration R thigh fascial debridement, exploration perineum w/ excision of superficial peroneal ulcer, and laparotomy w/ R oophorectomy for ischemic ovary and salpingectomy per MD notes. MAP 61 this AM. Noted frequent low Glu this admit; EN recs below in case prolonged intubation. Pending scaled wt this admit; EN recs using IBW. 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 Will continue to monitor. Rec: 1. IF TF; Vital High Protein at 60ml/hr goal 2. IF TF; additional water flush 200ml Q4 3. IF TF; Chris packet BID w/ water flushes for wound healing; mix one packet w/ 120ml free water and flush tube using 40ml free water before/after administration 4. bowel care per rx; consider opioid antagonist as medically indicated post-op 5. scaled wt this admit 6. upon extubation; advance diet as medically indicated to heart healthy Addendum: 11/25/20 at [address] Amended: Links added.
[2020-11-25] MEDS ORDERED: albumin (Human) 5% 250ml 250 ML IV ONE ×6 (10:55→21:50)
[2020-11-25 11:00] LABS: MAGNESIUM 1.4 MG/DL (1.5-2.4); PHOSPHORUS 4.1 MG/DL (2.3-4.5)
[2020-11-25] MEDS: IMMUNE GLOBULIN 10 GM/100 ML IV SCH ×4 (11:12→19:38)
[2020-11-25] MEDS ORDERED: tirofiban 5mg in NS 100mL 100 ML IV SCH (11:40)
[2020-11-25] MEDS ORDERED: magnesium 2GM in 50ml NS 50 ML IV ONE (11:50)
[2020-11-25] MEDS ORDERED: ARGATROBAN IV SCH (11:50)
[2020-11-25] MEDS ORDERED: NS IV SCH (11:50)
[2020-11-25] MEDS ORDERED: CALCIUM GLUC 1gm/50ml NACL,iso 50 ML IV ONE (11:50)
[2020-11-25] MEDS: argatroban in NS 50mg/50ml 50 ML IV SCH ×2 (12:45→15:27)
[2020-11-25] MEDS ORDERED: albumin (Human) 5% 250ml 250 ML IV PRN (13:15)
[2020-11-25] MEDS ORDERED: acetaminophen 1,000mg/100ml IV 100 ML IV PRN (13:30)
[2020-11-25 13:32] LABS: ABG BASE EXCESS -9.5 mmol/L (-2.0-2.0); ABG HCO3 13.7 mmol/L (22.0-26.0); ABG OXYGEN SATURATION 96.8 % (94-97); ABG PCO2 (T) 24.9 mmHg (32.0-45.0); ABG PO2 (T) 112.2 mmHg (75.0-100.0); FCOHb 0.3 % (0.0-3.9); FMetHb 0.3 % (0.0-1.5); FO2Hb 96.2 % (94-97); PATIENT TEMPERATURE 39.8; PEEP 5 cm H2O; RESPIRATORY RATE 16 b/min; TIDAL VOLUME 600 mL
--- NOTE | 2020-11-25 14:26 | NUR ---
0600- Received report from Angelica, assumed care of patient. 0630- No doppler pulses to arms or feet, doppler popliteal pulses bilaterally, cold from mid [place] down, mottled legs, feet white, right hand deep red purple and cold. BP remains low, added bereket back. patient awake, nods head yes to pain, right pupil only slightly larger than left, both reactive. 0650 LA 6.6 0800- Dr Goins updated on patient status 0900- WBC 39.0, LA 6.7, Dr Rice here, dc vanco 1030- Dr Goins- trendelenburg patient to decrease pressors, try to get bereket off, increase pain meds 1100- Dr Alfaro give 500 of 5% albumin repeat if less 12, start argatroban 1140- updated Carbrallo, give 1gm calcium gluconate, and 2 gm Mag 1210 Argatroban started at 2 mcg/kg/min 1240 Dr Mack checked on patient 1330- Perform HIT test (send out), ok to give IV tylenol, albumin 500ml 5% q6hr PRN map <60 [id number] Right hip aspirate by Dr Weiss 1430-Dr Pappas called, plan for bradley today in case CVVH needed in middle of night. plan is probable CVVH tomorrow. 1515- Argatroban off, awaiting dose from pharmacy 1545- PTT level , meaning very elevated or clotted, tech confirms sample not clotted. Argatroban off, discussed with anesthesiologist, to remain off with a PTT recheck in [address] Goins also. Plan is for bradley after patient returns from surgery. Pt to OR for thrombectomy.
[2020-11-25] MEDS ORDERED: heparin 10,000 units/1 ML INJ ONE (14:44)
[2020-11-25] MEDS ORDERED: rocuronium 10mg/ml inj IV ONE ×3 (15:59→16:57)
[2020-11-25] MEDS ORDERED: iohexol 300 MG/1 ML 50ml polymer ONE (17:00)
[2020-11-25] MEDS ORDERED: calcium chloride 100 MG/1 ML inj IV ONE ×3 (17:13→21:50)
[2020-11-25 18:21] LABS: ABG BASE EXCESS -8.6 mmol/L (-2.0-2.0); ABG HCO3 16.1 mmol/L (22.0-26.0); ABG OXYGEN SATURATION 98.6 % (94-97); ABG PCO2 (T) 32.6 mmHg (32.0-45.0); ABG PO2 (T) 204.6 mmHg (75.0-100.0); FCOHb 0.3 % (0.0-3.9); FMetHb 0.4 % (0.0-1.5); FO2Hb 97.9 % (94-97); PATIENT TEMPERATURE 38.9
--- NOTE | 2020-11-25 18:25 | NUR ---
1800- reported off to Angelica. patient still in OR. Dr Cassidy to place bradley zapata with plan for CVVH to start after.
[2020-11-25] MEDS ORDERED: vasoPRESSIN 20 units/ml inj. ONE (18:51)
[2020-11-25] MEDS ORDERED: sevoflurane 250ml liquid IH ONE (18:51)
[2020-11-25] MEDS ORDERED: sodium bicarbonate (8.4%) inj. 1 MEQ/ML ML ONE (18:51)
[2020-11-25] MEDS ORDERED: NORepinephrine 8 MG in NS 250 ML BAG (32 mcg/ml) IV ONE (18:51)
[2020-11-25 19:34] LABS: BASOPHILS # (AUTO) 0.1 X10'3 (0-0.2); BASOPHILS % (AUTO) 0.4 % (0-1); EOSINOPHILS # (AUTO) 0.5 X10'3 (0-0.9); EOSINOPHILS % (AUTO) 1.2 % (0-6); HEMATOCRIT 22.8 % (35.0-45.0); HEMOGLOBIN 7.3 g/dl (12.0-16.0); LYMPHOCYTES # (AUTO) 1.9 X10'3 (1.1-4.8); LYMPHOCYTES % (AUTO) 5.1 % (21-51); MEAN CORPUSCULAR HEMOGLOBIN 32.1 PG (27.0-31.0); MEAN CORPUSCULAR HGB CONC 32.1 g/dL (33.0-36.5); MEAN CORPUSCULAR VOLUME 99.8 FL (78-98); MEAN PLATELET VOLUME 8.6 FL (7.4-10.4); MONOCYTES # (AUTO) 0.6 X10'3 (0-0.9); MONOCYTES % (AUTO) 1.5 % (2-12); NEUTROPHILS # (AUTO) 34.1 X10'3 (1.8-7.7); NEUTROPHILS % (AUTO) 91.8 % (42-75); RED BLOOD COUNT 2.28 X10'6 (4.20-5.60); RED CELL DISTRIBUTION WIDTH 13.7 % (11.5-14.5)
[2020-11-25 19:40] LABS: WHITE BLOOD COUNT 37.2 X10'3 (4.5-11.0)
[2020-11-25 19:41] LABS: PLATELET COUNT 40 X10'3 (140-440)
[2020-11-25 20:02] LABS: ALANINE AMINOTRANSFERASE 53 U/L (12-78); ALBUMIN 1.8 G/DL (3.4-5.0); ALBUMIN/GLOBULIN RATIO 0.8 (1.1-1.5); ALKALINE PHOSPHATASE 150 IU/L (46-116); ANION GAP 14 (8-16); ASPARTATE AMINO TRANSFERASE 94 U/L (10-37); BILIRUBIN,DIRECT 3.6 MG/DL (0-0.3); BILIRUBIN,TOTAL 3.9 MG/DL (0.1-1.0); BLOOD UREA NITROGEN 56 MG/DL (7-18); BUN/CREATININE RATIO 12.6 (6.6-38.0); CALCIUM 6.1 MG/DL (8.5-10.1); CHLORIDE 106 MMOL/L (99-107); CREATININE 4.46 MG/DL (0.40-0.90); GLUCOSE 105 MG/DL (70-104); PHOSPHORUS 4.9 MG/DL (2.3-4.5); POTASSIUM 5.1 MMOL/L (3.5-5.1); SODIUM 140 MMOL/L (135-145); TOTAL CARBON DIOXIDE 19.7 MMOL/L (24-32); eGFR 10 ML/MIN
[2020-11-25 20:09] LABS: ANISOCYTOSIS 1+; PLATELET ESTIMATE DECREASED; TOTAL CELLS COUNTED 100
[2020-11-25 20:10] LABS: TOXIC GRANULATION 2+
[2020-11-25 20:16] LABS: D-DIMER > 35.20 MG/L FEU (0-0.50)
[2020-11-25 20:21] LABS: PARTIAL THROMBOPLASTIN TIME > 139 SECONDS (22-32)
--- NOTE | 2020-11-25 20:32 | NUR ---
Spoke to Dr. Alfaro regarding PT greater then 90, INR greater then 8.0 PTT greater then 139 Ddimer greater then 35.2. Orders received to stop argatroban for 1 hour restart at 4ML /hr, transfuse 2 units PRBC, recheck PTT in 3 hours, call results to Angelina ULRICH for titration of argatroban.
[2020-11-25] MEDS: Duosol 4K/3 Ca (w/calcium) 5,000 ML HE SCH ×3 (20:36→20:39)
[2020-11-25 21:00] LABS: ABG BASE EXCESS -11.3 mmol/L (-2.0-2.0); ABG HCO3 15.9 mmol/L (22.0-26.0); ABG OXYGEN SATURATION 92.8 % (94-97); ABG PCO2 (T) 46.4 mmHg (32.0-45.0); ABG PO2 (T) 99.4 mmHg (75.0-100.0); FCOHb 0.1 % (0.0-3.9); FMetHb 0.6 % (0.0-1.5); FO2Hb 92.2 % (94-97); PATIENT TEMPERATURE 39.5; PEEP 5 cm H2O; RESPIRATORY RATE 12 b/min; TIDAL VOLUME 500 mL; TOTAL HEMOGLOBIN 7.4 G/dl (12.0-16.0)
[2020-11-25] MEDS ORDERED: gelatin sponge, absorbable (Gelfoam 12-7MM) sponge TP ONE (21:05)
[2020-11-25] MEDS ORDERED: sodium bicarbonate (8.4%) 1 mEq/ml syringe IV ONE (21:35)
[2020-11-25] MEDS: piperacillin/tazo 4.5gm/100ml 100 ML IV SCH (21:39)
[2020-11-25] MEDS ORDERED: sodium bicarbonate (8.4%) 1 mEq/ml syringe ONE (21:40)
--- NOTE | 2020-11-25 22:16 | NUR ---
Replacement fluid set at 3000 per 35ml/kg/hr guideline. Teledoctor ordered keep fluid balance at zero off stating "she doesn't have it to give."
[2020-11-25 23:30] LABS: BASOPHILS # (AUTO) 0.1 X10'3 (0-0.2); HEMOGLOBIN 7.7 g/dl (12.0-16.0); MEAN PLATELET VOLUME 8.7 FL (7.4-10.4); RED BLOOD COUNT 2.51 X10'6 (4.20-5.60)
[2020-11-25 23:31] LABS: BASOPHILS % (AUTO) 0.4 % (0-1); EOSINOPHILS # (AUTO) 0.2 X10'3 (0-0.9); EOSINOPHILS % (AUTO) 0.7 % (0-6); HEMATOCRIT 23.2 % (35.0-45.0); LYMPHOCYTES # (AUTO) 1.9 X10'3 (1.1-4.8); MEAN CORPUSCULAR HEMOGLOBIN 30.7 PG (27.0-31.0); MEAN CORPUSCULAR HGB CONC 33.2 g/dL (33.0-36.5); MEAN CORPUSCULAR VOLUME 92.6 FL (78-98); MONOCYTES # (AUTO) 0.1 X10'3 (0-0.9); MONOCYTES % (AUTO) 0.4 % (2-12); NEUTROPHILS # (AUTO) 29.4 X10'3 (1.8-7.7); NEUTROPHILS % (AUTO) 92.5 % (42-75); RED CELL DISTRIBUTION WIDTH 16.2 % (11.5-14.5)
[2020-11-25 23:33] LABS: PLATELET COUNT 37 X10'3 (140-440); WHITE BLOOD COUNT 31.8 X10'3 (4.5-11.0)
[2020-11-25 23:49] LABS: ALBUMIN 1.7 G/DL (3.4-5.0); ANION GAP 17 (8-16); BLOOD UREA NITROGEN 52 MG/DL (7-18); BUN/CREATININE RATIO 13.6 (6.6-38.0); CALCIUM 6.7 MG/DL (8.5-10.1); CHLORIDE 107 MMOL/L (99-107); CREATININE 3.83 MG/DL (0.40-0.90); GLUCOSE 98 MG/DL (70-104); MAGNESIUM 1.9 MG/DL (1.5-2.4); PHOSPHORUS 4.9 MG/DL (2.3-4.5); POTASSIUM 4.9 MMOL/L (3.5-5.1); SODIUM 143 MMOL/L (135-145); TOTAL CARBON DIOXIDE 19.4 MMOL/L (24-32); eGFR 12 ML/MIN
[2020-11-26] VITALS (25 sets, daily range): BP systolic 49–159; BP diastolic 38–57
[2020-11-26] MEDS ORDERED: calcium chloride inj. 1,000 MG in normal saline 100ml IV soln 90 ML IV PRN (00:10)
[2020-11-26] MEDS ORDERED: NS IV SCH (00:10)
[2020-11-26] MEDS ORDERED: CALCIUM CHLORIDE IV SCH (00:10)
[2020-11-26] MEDS ORDERED: SODIUM CHLORIDE 0.45% IV SCH (00:10)
[2020-11-26] MEDS ORDERED: potassium Cl 40MEQ/250ML bag 250 ML IV PRN (00:10)
[2020-11-26] MEDS ORDERED: magnesium 4gm in 100ml NS 100 ML IV PRN (00:10)
[2020-11-26] MEDS ORDERED: sodium phosphate inj. 30 MMOL in dextrose 5%-water 240 ML IV PRN (00:10)
[2020-11-26] MEDS ORDERED: SODIUM BICARBONATE IV SCH (00:10)
[2020-11-26] MEDS: hydrocortisone sod succ/PF 100mg/2ml inj. IV SCH ×3 (00:13→16:21)
[2020-11-26] MEDS: CLINDAMYCIN/D5W 900mg/50ml 50 ML IV SCH ×3 (00:13→16:21)
[2020-11-26] MEDS: argatroban in NS 50mg/50ml 50 ML IV SCH ×2 (00:20→02:55)
[2020-11-26] MEDS: Duosol 4K/3 Ca (w/calcium) 5,000 ML HE SCH ×8 (00:44→10:46)
[2020-11-26] MEDS: NORepinephrine inj. 32 MG in normal saline 250ml IV soln 218 ML IV SCH (00:49)
[2020-11-26 01:04] LABS: BASOPHILS # (AUTO) 0.1 X10'3 (0-0.2); HEMOGLOBIN 7.7 g/dl (12.0-16.0)
[2020-11-26 01:05] LABS: BASOPHILS % (AUTO) 0.2 % (0-1); EOSINOPHILS # (AUTO) 0.3 X10'3 (0-0.9); EOSINOPHILS % (AUTO) 1.1 % (0-6); HEMATOCRIT 23.1 % (35.0-45.0); LYMPHOCYTES # (AUTO) 2.4 X10'3 (1.1-4.8); LYMPHOCYTES % (AUTO) 7.4 % (21-51); MEAN CORPUSCULAR HEMOGLOBIN 30.6 PG (27.0-31.0); MEAN CORPUSCULAR HGB CONC 33.2 g/dL (33.0-36.5); MEAN CORPUSCULAR VOLUME 91.9 FL (78-98); MEAN PLATELET VOLUME 8.5 FL (7.4-10.4); MONOCYTES # (AUTO) 0.8 X10'3 (0-0.9); MONOCYTES % (AUTO) 2.5 % (2-12); NEUTROPHILS # (AUTO) 28.6 X10'3 (1.8-7.7); NEUTROPHILS % (AUTO) 88.8 % (42-75); RED BLOOD COUNT 2.52 X10'6 (4.20-5.60); RED CELL DISTRIBUTION WIDTH 17.1 % (11.5-14.5)
[2020-11-26 01:09] LABS: PLATELET COUNT 35 X10'3 (140-440); WHITE BLOOD COUNT 32.2 X10'3 (4.5-11.0)
[2020-11-26 01:27] LABS: ALANINE AMINOTRANSFERASE 47 U/L (12-78); ALBUMIN 1.7 G/DL (3.4-5.0); ALBUMIN/GLOBULIN RATIO 0.8 (1.1-1.5); ALKALINE PHOSPHATASE 140 IU/L (46-116); ANION GAP 13 (8-16); ASPARTATE AMINO TRANSFERASE 103 U/L (10-37); BILIRUBIN,TOTAL 4.2 MG/DL (0.1-1.0); BLOOD UREA NITROGEN 47 MG/DL (7-18); BUN/CREATININE RATIO 13.7 (6.6-38.0); CALCIUM 6.7 MG/DL (8.5-10.1); CHLORIDE 107 MMOL/L (99-107); CREATININE 3.44 MG/DL (0.40-0.90); GLUCOSE 94 MG/DL (70-104); MAGNESIUM 1.8 MG/DL (1.5-2.4); POTASSIUM 4.6 MMOL/L (3.5-5.1); SODIUM 140 MMOL/L (135-145); TOTAL PROTEIN 3.8 G/DL (6.4-8.2); eGFR 13 ML/MIN
[2020-11-26 02:00] LABS: PARTIAL THROMBOPLASTIN TIME > 139 SECONDS (22-32)
--- NOTE | 2020-11-26 02:09 | NUR ---
spoke to Dr. Alfaro regarding PTT greater then 139 orders received to hold argatroban for 1 hour re start drip at 3.5 ml/hr re draw ptt at [address] Alfaro with results
[2020-11-26 02:57] LABS: BASOPHILS # (AUTO) 0.1 X10'3 (0-0.2); HEMOGLOBIN 7.5 g/dl (12.0-16.0)
[2020-11-26 02:59] LABS: BASOPHILS % (AUTO) 0.4 % (0-1); EOSINOPHILS # (AUTO) 0.2 X10'3 (0-0.9); EOSINOPHILS % (AUTO) 0.5 % (0-6); HEMATOCRIT 22.4 % (35.0-45.0); LYMPHOCYTES % (AUTO) 8.5 % (21-51); MEAN CORPUSCULAR HEMOGLOBIN 30.7 PG (27.0-31.0); MEAN CORPUSCULAR HGB CONC 33.5 g/dL (33.0-36.5); MEAN CORPUSCULAR VOLUME 91.7 FL (78-98); MEAN PLATELET VOLUME 8.3 FL (7.4-10.4); MONOCYTES # (AUTO) 0.7 X10'3 (0-0.9); MONOCYTES % (AUTO) 2.1 % (2-12); NEUTROPHILS # (AUTO) 31.2 X10'3 (1.8-7.7); NEUTROPHILS % (AUTO) 88.5 % (42-75); RED BLOOD COUNT 2.44 X10'6 (4.20-5.60); RED CELL DISTRIBUTION WIDTH 17.5 % (11.5-14.5)
[2020-11-26 03:00] LABS: WHITE BLOOD COUNT 35.3 X10'3 (4.5-11.0)
[2020-11-26 03:01] LABS: PLATELET COUNT 34 X10'3 (140-440)
[2020-11-26 03:10] LABS: ALANINE AMINOTRANSFERASE 50 U/L (12-78); ALBUMIN 1.6 G/DL (3.4-5.0); ALKALINE PHOSPHATASE 136 IU/L (46-116); ANION GAP 14 (8-16); ASPARTATE AMINO TRANSFERASE 108 U/L (10-37); BILIRUBIN,TOTAL 4.8 MG/DL (0.1-1.0); BLOOD UREA NITROGEN 44 MG/DL (7-18); BUN/CREATININE RATIO 14.4 (6.6-38.0); CALCIUM 7.5 MG/DL (8.5-10.1); CHLORIDE 106 MMOL/L (99-107); CREATININE 3.06 MG/DL (0.40-0.90); GLUCOSE 101 MG/DL (70-104); POTASSIUM 4.7 MMOL/L (3.5-5.1); SODIUM 140 MMOL/L (135-145); TOTAL CARBON DIOXIDE 20.2 MMOL/L (24-32); eGFR 15 ML/MIN
[2020-11-26 03:12] LABS: ABG BASE EXCESS -8.1 mmol/L (-2.0-2.0); ABG HCO3 14.6 mmol/L (22.0-26.0); ABG OXYGEN SATURATION 98.3 % (94-97); ABG PO2 (T) 152.7 mmHg (75.0-100.0); FCOHb 0.6 % (0.0-3.9); FMetHb 0.1 % (0.0-1.5); FO2Hb 97.6 % (94-97); PATIENT TEMPERATURE 35.9; PEEP 5 cm H2O; RESPIRATORY RATE 24 b/min; TIDAL VOLUME 500 mL; TOTAL HEMOGLOBIN 7.6 G/dl (12.0-16.0)
[2020-11-26 03:15] LABS: ANISOCYTOSIS 1+; PLATELET ESTIMATE DECREASED; TOTAL CELLS COUNTED 100; TOXIC GRANULATION 1+
[2020-11-26 03:34] LABS: ALBUMIN/GLOBULIN RATIO 0.8 (1.1-1.5); TOTAL PROTEIN 3.7 G/DL (6.4-8.2)
[2020-11-26] MEDS: mineral oil/petrolatum ophthal oint EACHEYE SCH ×3 (03:35→14:36)
[2020-11-26 03:46] LABS: PARTIAL THROMBOPLASTIN TIME > 139 SECONDS (22-32)
--- NOTE | 2020-11-26 04:29 | NUR ---
Call placed to msg Alan left awaiting return call
--- NOTE | 2020-11-26 04:49 | NUR ---
spoke to Dr. Alfaro regarding low hgb and Hct. new orders to give 2 units PRBC, please follow protocol regarding argatroban PTT.
[2020-11-26] MEDS: dextrose 50%-water 50ml dispensing syringe IV PRN ×2 (05:43→14:38)
[2020-11-26] MEDS: vasopressin inj. 40 UNIT in normal saline 50ml IV soln 38 ML IV SCH (06:25)
[2020-11-26] MEDS: sodium bicarbonate (8.4%) inj. 150 MEQ in dextrose 5%-water 1,000 ML IV SCH ×3 (06:25→16:38)
--- NOTE | 2020-11-26 06:25 | NUR ---
unable to get an accurate sat on the patient on and off throughout the night. patient is very cold to the touch, mottled from head to toe. pulse ox on ear works occasionally but does not display what is shown in the ABG, which showed sats being 98%. Patient was very unstable all night and was unable to turn patient due to this. bradley has oozed since placement, dressing was changed twice with gelfoam placed, no success in getting site to stop oozing. Unable to get patient off of bloody sheet due to how unstable she was. Patient became severely hypotensive at approximately 0530 and needed levo at max, vaso at max and bereket at 2. the two units prbc were given stat and patient's blood pressure recovered so much so that the bereket and levo were turned off. once the blood products were given, patient's bp was stable, however levo was turned on at .1 once map was 63. overall patient has tolerated CVVH over night despite her declining condition.
--- NOTE | 2020-11-26 06:32 | NUR ---
Problems reprioritized. Patient report given, questions answered & plan of care reviewed with JR Steen.
[2020-11-26] MEDS: K, MAG and/or Phos replacement - Verify level? MC SCH (08:00)
[2020-11-26] MEDS: famotidine/PF 10 mg/ml inj IV SCH (08:47)
[2020-11-26] MEDS: piperacillin/tazo 4.5gm/100ml 100 ML IV SCH (08:47)
[2020-11-26 08:55] LABS: BASOPHILS # (AUTO) 0.1 X10'3 (0-0.2); BASOPHILS % (AUTO) 0.4 % (0-1); EOSINOPHILS # (AUTO) 0.7 X10'3 (0-0.9); EOSINOPHILS % (AUTO) 2.1 % (0-6); HEMATOCRIT 29.2 % (35.0-45.0); HEMOGLOBIN 9.6 g/dl (12.0-16.0); LYMPHOCYTES # (AUTO) 3.4 X10'3 (1.1-4.8); LYMPHOCYTES % (AUTO) 9.8 % (21-51); MEAN CORPUSCULAR HEMOGLOBIN 29.8 PG (27.0-31.0); MEAN CORPUSCULAR HGB CONC 33.1 g/dL (33.0-36.5); MEAN CORPUSCULAR VOLUME 90.1 FL (78-98); MEAN PLATELET VOLUME 8.5 FL (7.4-10.4); MONOCYTES # (AUTO) 1.1 X10'3 (0-0.9); MONOCYTES % (AUTO) 3.1 % (2-12); NEUTROPHILS # (AUTO) 29.1 X10'3 (1.8-7.7); NEUTROPHILS % (AUTO) 84.6 % (42-75); RED BLOOD COUNT 3.24 X10'6 (4.20-5.60); RED CELL DISTRIBUTION WIDTH 17.6 % (11.5-14.5)
[2020-11-26 09:01] LABS: PLATELET COUNT 25 X10'3 (140-440); WHITE BLOOD COUNT 34.4 X10'3 (4.5-11.0)
[2020-11-26 09:20] LABS: ALANINE AMINOTRANSFERASE 90 U/L (12-78); ALBUMIN 1.4 G/DL (3.4-5.0); ALBUMIN/GLOBULIN RATIO 0.6 (1.1-1.5); ALKALINE PHOSPHATASE 129 IU/L (46-116); ANION GAP 19 (8-16); ASPARTATE AMINO TRANSFERASE 299 U/L (10-37); BILIRUBIN,TOTAL 5.9 MG/DL (0.1-1.0); BLOOD UREA NITROGEN 32 MG/DL (7-18); BUN/CREATININE RATIO 12.7 (6.6-38.0); CALCIUM 7.1 MG/DL (8.5-10.1); CHLORIDE 106 MMOL/L (99-107); CREATININE 2.51 MG/DL (0.40-0.90); GLUCOSE 82 MG/DL (70-104); MAGNESIUM 1.9 MG/DL (1.5-2.4); POTASSIUM 5.4 MMOL/L (3.5-5.1); SODIUM 141 MMOL/L (135-145); TOTAL CARBON DIOXIDE 15.8 MMOL/L (24-32); TOTAL PROTEIN 3.6 G/DL (6.4-8.2); eGFR 19 ML/MIN
[2020-11-26 10:39] LABS: ANISOCYTOSIS 1+; PLATELET ESTIMATE DECREASED; SMUDGE CELLS 1+; TOTAL CELLS COUNTED 100
[2020-11-26] MEDS ORDERED: heparin 1,000 units/ml 10ml inj HE ONE ×2 (11:40)
[2020-11-26] MEDS: penicillin G potassium inj 2,000,000 UNIT in normal saline 100ml IV soln 100 ML IV SCH ×2 (12:00→16:24)
--- NOTE | 2020-11-26 12:40 | NUR ---
Wound care was consulted for new surgical wounds to right groin and perineum. Patient's status is unstable on this day to assess and give treatment to surgical wounds. Spoke with bedside nurse, wound care available when patient is stable.
[2020-11-26 15:01] LABS: BASOPHILS # (AUTO) 0.1 X10'3 (0-0.2); EOSINOPHILS % (AUTO) 2.2 % (0-6); MEAN CORPUSCULAR HGB CONC 32.8 g/dL (33.0-36.5); MONOCYTES # (AUTO) 1.2 X10'3 (0-0.9); MONOCYTES % (AUTO) 3.1 % (2-12); RED CELL DISTRIBUTION WIDTH 18.1 % (11.5-14.5)
[2020-11-26 15:03] LABS: BASOPHILS % (AUTO) 0.1 % (0-1); EOSINOPHILS # (AUTO) 0.8 X10'3 (0-0.9); HEMATOCRIT 26.6 % (35.0-45.0); HEMOGLOBIN 8.7 g/dl (12.0-16.0); LYMPHOCYTES # (AUTO) 4.1 X10'3 (1.1-4.8); LYMPHOCYTES % (AUTO) 10.7 % (21-51); MEAN CORPUSCULAR HEMOGLOBIN 29.7 PG (27.0-31.0); MEAN CORPUSCULAR VOLUME 90.7 FL (78-98); MEAN PLATELET VOLUME 9.2 FL (7.4-10.4); NEUTROPHILS # (AUTO) 32.3 X10'3 (1.8-7.7); NEUTROPHILS % (AUTO) 83.9 % (42-75); RED BLOOD COUNT 2.93 X10'6 (4.20-5.60)
--- NOTE | 2020-11-26 15:05 | NUR ---
0600 Received report, assumed care of patient. 0630- pupils pinpoint and no corneal reflex present. 0700- turned off sedation and fentanyl, restraints off patient. deep red mottling to bilat legs, left foot warm, doppler pulse positive. R foot, pulse, and white. hematoma to left chest at bradley site, oozing blood from site. 0900- Dr Rice here, patient prognosis very poor aware of platelets of 25 and LA of 14.4. Dr Alfaro here, aware of patient status, spoke to probable best course of care may well be comfort care. Dr Pappas here and spoke with other docs. 0930- Daughter here, nursing updated on patient status. 1100- MD spoke with daughter at bedside, plan is for CT of head . 1330- returned blood from cvvh, and placed on recirculate. 1400- down to CT scan, multiple bleeds seen on scan. 1430- MD speaking with daughter on phone, daughter discussing plan with family and will call back.
[2020-11-26 15:14] LABS: PLATELET COUNT 26 X10'3 (140-440); WHITE BLOOD COUNT 38.6 X10'3 (4.5-11.0)
[2020-11-26 15:19] LABS: ALANINE AMINOTRANSFERASE 444 U/L (12-78); ALBUMIN 1.2 G/DL (3.4-5.0); ALKALINE PHOSPHATASE 127 IU/L (46-116); ANION GAP 21 (8-16); BILIRUBIN,TOTAL 6.2 MG/DL (0.1-1.0); BLOOD UREA NITROGEN 32 MG/DL (7-18); BUN/CREATININE RATIO 13.4 (6.6-38.0); CALCIUM 6.9 MG/DL (8.5-10.1); CHLORIDE 106 MMOL/L (99-107); CREATININE 2.38 MG/DL (0.40-0.90); GLUCOSE 54 MG/DL (70-104); SODIUM 140 MMOL/L (135-145); eGFR 20 ML/MIN
[2020-11-26 15:20] LABS: ALBUMIN/GLOBULIN RATIO 0.5 (1.1-1.5); TOTAL PROTEIN 3.4 G/DL (6.4-8.2)
[2020-11-26 15:25] LABS: POTASSIUM 6.1 MMOL/L (3.5-5.1); TOTAL CARBON DIOXIDE 13.2 MMOL/L (24-32)
[2020-11-26 15:32] LABS: ASPARTATE AMINO TRANSFERASE 2087 U/L (10-37)
--- NOTE | 2020-11-26 16:48 | NUR ---
1600- BP becoming more labile, desating periodically, resp up to 30. Placed call to daughter to discuss course of care, comfort care still being discussed amongst family, daughter wishes for code status to be DNR. MD spoke with daughter, CVVH not to continue. Critical labs are not to be addressed at this time unless family decides to proceed with aggressive care.
[2020-11-26] MEDS ORDERED: normal saline 500ml IV soln 1,000 ML IV ONE (17:40)
--- NOTE | 2020-11-26 18:19 | NUR ---
1730 requiring more pressors, MD ordered 500cc NS bolus 1745 - st elevation noted, MD on floor, 12 lead EKG done, no tx due to patient status. 1815- call placed to daughter, she is ready to have patient go to comfort care, to write order, daughter on her way in to be at bedside before supportive care withdrawn.
--- NOTE | 2020-11-26 18:30 | NUR ---
Patient in room CICU 2011. I have received report from JR Steen and had the opportunity to ask questions and assume patient care.
--- NOTE | 2020-11-26 18:30 | NUR ---
Problems reprioritized. Patient report given, questions answered & plan of care reviewed with Angelica.
[2020-11-26] MEDS: midazolam 100mg in NS 100ml 100 ML IV PRN (18:40)
[2020-11-26] MEDS: FENTANYL-0.9 % NACL/PF 100 ML IV PRN (18:41)
--- NOTE | 2020-11-26 18:54 | NUR ---
daughter at bedside
--- NOTE | 2020-11-26 19:00 | NUR ---
Patient extubated to comfort care at this time. patient was placed on 2L nasal cannula. versed at 5, fentanyl at 100 per MD hernadez's request, patient bolused prior to extubation. pressors d/c'd as soon as daughter was ready.
[2020-11-26] MEDS ORDERED: lactobacillus rhamnosus 10,000 MMU CELLS/CAPSULE PO SCH (20:00)
--- NOTE | 2020-11-26 20:00 | NUR ---
RN IS TO DOCUMENT YES TO ALL APPLICABLE AREAS Pronouncement of : 1. Time Physician Notified:1999 2. Date of :11/26/20 3. Time of : 1911 4. DNR/Withdraw life support documented: yes 5. Monitor strip has been placed on chart: yes 6. Assessment process is of one-minute duration and includes following criteria: a) Patient is unresponsive to all stimuli: yes b) Pupils fixed and non-reactive:yes c) Auscultation of precordium reveals absence of heart tones:yes d) Auscultation of lungs reveals absence of breath sounds:yes e) Absence of blood pressure / all vital signs:yes f) QRS complexes are not present on monitor / EKG strip:yes g) Pacer spikes without capture:n/a 4. Comments: Patient's daughter requested that yellow gold cross necklace be placed on patient neck after she is cleaned up. patient was bathed and necklace was placed on patient. will make young glynn aware of the patient's belonging.
--- NOTE | 2020-11-28 10:42 | NUR ---
Please disregard Dialysis charges entered 11/26/20 at 1450 by DARRYL. They were entered in error. Addendum: 11/28/20 at 1043 by Mali CALZADA RN Amended: Links added.
== END 2020-11-26 20:57 | disposition expired | DRG 853 ==
LOC: ER 19:28 → ED HOLD 22:32 → CICU 2S 23:33
PROVIDERS: ADMIT Internal Medicine; ATTEND Internal Medicine
PROC: 02HV33Z Insertion of Infusion Device into Superior Vena Cava, Percutaneous Approach (ICD-10-PCS; 2020-11-23)
PROC: 0JBL0ZZ Excision of Right Upper Leg Subcutaneous Tissue and Fascia, Open Approach (ICD-10-PCS; 2020-11-24)
PROC: 0WBN0ZZ Excision of Female Perineum, Open Approach (ICD-10-PCS; 2020-11-24)
PROC: 0DNW0ZZ Release Peritoneum, Open Approach (ICD-10-PCS; 2020-11-24)
PROC: 0UB50ZZ Excision of Right Fallopian Tube, Open Approach (ICD-10-PCS; 2020-11-24)
PROC: 5A0935A Assistance with Respiratory Ventilation, Less than 24 Consecutive Hours, High Flow/Velocity Cannula (ICD-10-PCS; 2020-11-24)
PROC: 03HY32Z Insertion of Monitoring Device into Upper Artery, Percutaneous Approach (ICD-10-PCS; 2020-11-24)
PROC: 4A133B1 Monitoring of Arterial Pressure, Peripheral, Percutaneous Approach (ICD-10-PCS; 2020-11-24)
PROC: 4A133J1 Monitoring of Arterial Pulse, Peripheral, Percutaneous Approach (ICD-10-PCS; 2020-11-24)
PROC: 0UT00ZZ Resection of Right Ovary, Open Approach (ICD-10-PCS; principal; 2020-11-24 21:06)
PROC: 03CB0ZZ Extirpation of Matter from Right Radial Artery, Open Approach (ICD-10-PCS; 2020-11-25)
PROC: 30233N1 Transfusion of Nonautologous Red Blood Cells into Peripheral Vein, Percutaneous Approach (ICD-10-PCS; 2020-11-25)
PROC: 0S993ZZ Drainage of Right Hip Joint, Percutaneous Approach (ICD-10-PCS; 2020-11-25)
PROC: B32T1ZZ Computerized Tomography (CT Scan) of Left Pulmonary Artery using Low Osmolar Contrast (ICD-10-PCS; 2020-11-25)
PROC: B3201ZZ Computerized Tomography (CT Scan) of Thoracic Aorta using Low Osmolar Contrast (ICD-10-PCS; 2020-11-25)
PROC: B32S1ZZ Computerized Tomography (CT Scan) of Right Pulmonary Artery using Low Osmolar Contrast (ICD-10-PCS; 2020-11-25)
PROC: B4201ZZ Computerized Tomography (CT Scan) of Abdominal Aorta using Low Osmolar Contrast (ICD-10-PCS; 2020-11-25)
PROC: B4241ZZ Computerized Tomography (CT Scan) of Superior Mesenteric Artery using Low Osmolar Contrast (ICD-10-PCS; 2020-11-25)
PROC: B4281ZZ Computerized Tomography (CT Scan) of Bilateral Renal Arteries using Low Osmolar Contrast (ICD-10-PCS; 2020-11-25)
PROC: B4211ZZ Computerized Tomography (CT Scan) of Celiac Artery using Low Osmolar Contrast (ICD-10-PCS; 2020-11-25)
PROC: 5A1D90Z Performance of Urinary Filtration, Continuous, Greater than 18 hours Per Day (ICD-10-PCS; 2020-11-25)
PROC: 05HY33Z Insertion of Infusion Device into Upper Vein, Percutaneous Approach (ICD-10-PCS; 2020-11-25)
DX: A40.0 Sepsis due to streptococcus, group A (principal); A48.3 Toxic shock syndrome; R65.21 Severe sepsis with septic shock; J96.00 Acute respiratory failure, unspecified whether with hypoxia or hypercapnia; I61.9 Nontraumatic intracerebral hemorrhage, unspecified; N17.0 Acute kidney failure with tubular necrosis; I74.2 Embolism and thrombosis of arteries of the upper extremities; D68.9 Coagulation defect, unspecified; E87.2 Acidosis; K52.9 Noninfective gastroenteritis and colitis, unspecified; K66.0 Peritoneal adhesions (postprocedural) (postinfection); Z20.822 Contact with and (suspected) exposure to COVID-19; Z96.643 Presence of artificial hip joint, bilateral; M60.851 Other myositis, right thigh; D69.6 Thrombocytopenia, unspecified; E86.0 Dehydration; E87.6 Hypokalemia; K57.30 Diverticulosis of large intestine without perforation or abscess without bleeding; Z51.5 Encounter for palliative care; Z66 Do not resuscitate; Z87.442 Personal history of urinary calculi; Z98.82 Breast implant status; Z98.84 Bariatric surgery status; Z98.51 Tubal ligation status; M60.9 Myositis, unspecified
CPT/HCPCS: 36415; 36430; 36556; 36600; 49405; 70450; 71045; 71275; 72195; 73120; 73501; 74174; 74176; 76000; 76856; 76881; 76937; 80048; 80053; 80076; 80202; 81001; 82272; 82330; 82570; 82803; 82948; 83036; 83605; 83690; 83735; 83880; 84100; 84145; 84156; 84300; 84484; 85007; 85018; 85025; 85379; 85384; 85610; 85730; 86885; 86900; 86901; 86920; 87040; 87045; 87046; 87070; 87075; 87077; 87081; 87088; 87186; 87207; 87324; 87449; 87635; 90935; 93005; 93925; 93930; 93971; 94002; 94003; 94760; 94799; 99285; A4618; A6258; A6446; A6449; A7000; C1757; E1594; G0378; J0131; J1459; J1580; J1644; J1720; J2001; J2250; J2270; J2370; J2405; J2540; J2543; J2704; J3010; J3370; J3475; J3480; J3490; J7030; J7040; J7050; P9016; P9045; Q9967